=== PATIENT | female | born 2000 | race Caucasian/White ===

== ENCOUNTER 2021-01-14 23:05 | Emergency (ER) | payer OTHER ==
[~2021-01-14] VITALS: Ht 165.1 cm; Wt 104.3 kg
[2021-01-14 23:05] VITALS: BP_SYST 161
[2021-01-14] MEDS ORDERED: LIDOCAINE/EPI 1% 1:100000 20 ML VIAL INJ ONE (23:15)
[2021-01-14] MEDS ORDERED: PIPERACILLIN/TAZO 3.375 GM in NS 50 ML IV ONE (23:30)
[2021-01-14] MEDS ORDERED: BACITRACIN 1 GM OINT TP ONE (23:30)
[2021-01-14] MEDS ORDERED: DIPH-TET-PERTUS Vaccine 0.5 ML VIAL (ADACEL) I.M. ONE (23:30)
[2021-01-14] MEDS ORDERED: KETOROLAC TROMETHAMINE 30 MG VIAL IVP ONE (23:30)
[2021-01-14] MEDS ORDERED: PIPERACILLIN/TAZOBACTAM 3.375 GM/VIAL (ZOSYN) IV ONE (23:51)
[2021-01-15] MEDS ORDERED: PENI500T PO (00:49)
[2021-01-15] MEDS ORDERED: NAPR-1172 PO (00:49)
[2021-01-15 00:54] VITALS: BP_SYST 161
== END 2021-01-15 00:54 | disposition home or self-care (01) ==
LOC: SED 23:05
DX: S91.341A Puncture wound with foreign body, right foot, initial encounter (principal); Z79.899 Other long term (current) drug therapy; W45.8XXA Other foreign body or object entering through skin, initial encounter; Y93.89 Activity, other specified; Y92.89 Other specified places as the place of occurrence of the external cause; Y99.8 Other external cause status
CPT/HCPCS: 36415; 73620; 87040; 90471; 90715; 96365; 96375; 99284; J1885; J2543